=== PATIENT | female | born 2005 | race Caucasian/White ===

== ENCOUNTER 2024-11-23 18:11 | Inpatient (IN) | payer BC, SELFPAY ==
[2024-11-23] VITALS (9 sets, daily range): BP systolic 116–145; BP diastolic 78–99; BMI 20.4; BMI 19.5
--- NOTE | 2024-11-23 15:11 | ED.GENMED ---
History of Present Illness
General
Chief Complaint: Breathing Problem
Source: patient
Exam Limitations: none
Time Seen by Provider: 11/23/24 14:59
Nursing documentation reviewed up to this point in time: agreed with
History of Present Illness
History of Present Illness:
Patient with history of exercise-induced asthma, presents to ED secondary to worsening cough with shortness of breath over the past couple of days, despite using her inhaler at home. Over the past 3 months, patient has had intermittent episodes of
similar symptoms. Patient has been evaluated at urgent care center on multiple occasions, and has finished course of antibiotics as well as 2 rounds his own. Denies fever or chills. Denies chest pain. Denies leg pain or swelling. Denies recent
travel or surgery. Denies nausea, vomiting, or diarrhea. Denies loss of appetite. Denies family history of early heart disease or blood clots. Patient is currently at school, and reports having been exposed to 'dirty air', as they visited school
barn recently.
Review of Systems
Review of Systems
Allergies reviewed?: Yes
All Other Systems: ROS reviewed and negative except as documented in HPI and ROS
Constitutional: Reports no symptoms; Denies fever
Respiratory: Reports cough and trouble breathing
Cardiac: Reports no symptoms; Denies chest pain
ABD/GI: Reports no symptoms; Denies vomiting or diarrhea
Musculoskeletal: Reports no symptoms; Denies edema
Skin: Reports no symptoms
Neurological: Reports no symptoms
Phy Exam
Physical Exam
Physical Exam:
Physical Exam
General: mild respiratory distress, not acutely ill. afebrile. tachycardic
Head: nc/at. eomi
Neck: supple. no meningeal signs. normal posterior pharynx
Heart: tachycardic, no murmur.
Lungs: mild respiratory distress. clear bilaterally
Abdomen: normal bowel sounds. not tender.
Neuro: alert and oriented x 3. no focal neurological deficits
Skin: no rash
Psychiatric: well kept. interactive and cooperative
Extremities: no edema. no calf tenderness.
Sepsis
Sepsis Screening
Sepsis Assessment: Sepsis Ruled Out
Sepsis Screen
Sepsis Screen: Sepsis Ruled Out
Date: 11/23/24
Time: 22:50
Course
Orders/Labs/Results
Orders:
Orders
11/23/24 Dinner
Regular
At Your Request: Full Participation
11/23/24 15:08
Dexamethasone Sod Phosphate [Decadron] 6 mg IV NOW STA
Ipratropium/Albuterol Sulfate [Duoneb] 3 ml INH R NOW STA
Test Result ONCE
11/23/24 15:09
0.9% Sodium Chloride 500 ml [Nss] 500 ml IV BOLUS
11/23/24 15:26
Complete Blood Count/With Diff Urgent
Comprehensive Metabolic Panel Urgent
D-Dimer Urgent
HCG, Serum Qualitative Screen Urgent
Magnesium Urgent
11/23/24 17:03
Ipratropium/Albuterol Sulfate [Duoneb] 3 ml INH R NOW STA
11/23/24 17:39
Code Status As Directed
Resuscitation Status: Full Code
11/23/24 17:41
Activity As Directed
Activity Level: As Tolerated
Vital Signs As Directed
Frequency: Per unit guidelines
11/23/24 17:42
Pneumatic Compression Sleeves As Directed
Type: Knee high
DX Deep Vein Thrombosis Video Routine
11/23/24 17:43
Admit/Transfer Patient As Directed
Co-Sign Provider:
Level of Care: Inpatient admission
Assign to:: Telemetry
Physician / Group: blair
Diagnosis: asthma exacerbation
Reason for Telemetry: Arrhythmia
Date to Stop Telemetry: 11/26/24
Time to Stop Telemetry: 11:00
Reason for Hospitalization: asthma exacerbation
Expected length of stay greater than two midnights?: Yes
ELOS- Estimated Length of Stay in days: 2
I certify the patient meets the requirements for IP care: Yes
PRN Pain Medication Management As Directed
May give lesser potent ordered pain med per pt: Yes
preference::
Protocol:: Medication orders for pain may be administered in a
manner that supports deferring to patient preference
when the pt is:
- Requesting an ordered lesser potent pain medication.
Least to most potent pain medications are defined
as: acetaminophen < NSAID < tramadol < opioids
(morphine, oxycodone, hydromorphone).
- Requesting a lesser dose of the same medication IF
ORDERED.
- Requesting a less intrusive route of administration
if both routes are prescribed by the provider (PO <
IV).
11/23/24 17:45
CR Chest - 2 Views Urgent
Comment:
Reason For Exam: coughm wheeze
11/23/24 20:00
Albuterol Nebs [Ventolin Nebules] 2.5 mg INH R QID
Guaifenesin [Mucinex] 1,200 mg PO Q12
11/24/24 00:00
Dexamethasone Sod Phosphate [Decadron] 4 mg IV Q8
11/24/24 06:00
Basic Metabolic Panel IN AM
Complete Blood Count/With Diff IN AM
11/26/24 11:00
DC Protocol for Telemetry ONCE
Abnormal Lab Results
11/23/24
15:26
WBC 15.2 H 10^3/uL
(4.8-10.8)
Abs Immat Gran (auto) 0.1 H 10^3/uL
(0-0.05)
Absolute Neuts (auto) 10.9 H 10^3/uL
(1.4-6.5)
Absolute Monos (auto) 1.1 H 10^3/uL
(0.1-0.6)
Lymphocytes % 15.3 L %
(20.5-51.1)
Carbon Dioxide 21 L mmol/L
(22-30)
Glucose 110 H mg/dl
(70-99)
11/23/24 15:26
11/23/24 15:26
Vital Signs
Initial and Last Documented VS:
Initial Vital Signs
Temp Pulse Resp BP Pulse Ox
98.5 F 132 34 132/88 92
11/23/24 14:44 11/23/24 14:44 11/23/24 14:44 11/23/24 14:44 11/23/24 14:44
Last Documented Vital Signs
Temp Pulse Resp BP Pulse Ox
98.6 F 112 16 141/88 98
11/23/24 19:42 11/23/24 21:18 11/23/24 21:18 11/23/24 19:42 11/23/24 21:18
MDM/Problems Addressed
MDM/Problems Addressed:
Patient despite subjective improvement, with persistent wheezing along with mild respiratory distress, as noted by tachypnea and tachycardia. D-dimer negative. No other risk factors for PE. Patient will be admitted for further events or
treatment, including continuous IV steroid as well as nebulizer treatment. May benefit from pulmonary consultation.
*Critical Care Note
Total Time (30-74mins, 75-104mins- exclusive of procedures): Not Applicable
ED Attending Note
-
Portions of this chart may have been created with voice recognition software.� Occasional wrong word or��sound alike� substitutions may have occurred due to the inherent limitations of voice recognition software.
Discharge Plan
Departure
Patient Disposition: Admit
Date of Disposition: 11/23/24
Time of Disposition: 17:07
Admit to: Telemetry
Presentation/result/management discussed w/ accepting MD/DO: Hospitalist
Discharge Problem:
Asthma exacerbation
Interventions
Interventions:
*Risk Screen - Suicide Last Done: 11/23/24 14:44
*General Assessment Last Done: 11/23/24 14:44
*Neglect/Abuse Screening Last Done: 11/23/24 14:58
*ED- Fall Risk Assessment Last Done: 11/23/24 14:58
*ED COVID-19 Vaccine History Last Done: 11/23/24 14:44
*Nursing Disposition Last Done: 11/23/24 19:21
ED- Cardiac Assessment Last Done: 11/23/24 14:58
ED- Pulmonary Assessment Last Done: 11/23/24 14:58
Discharge Date and Time
Discharge Date/Time: 11/23/24 19:22
[2024-11-23] MEDS: DUONEB 3 ML INH ×2 (15:16→17:40)
[2024-11-23] MEDS: NSS 500 IV (15:24)
[2024-11-23] MEDS: DECADRON 6 MG IV (15:24)
[2024-11-23 15:36] LABS: % Basophils 0.6 % (0-2); % Eosinophils 4.2 % (0-6); % Immature Granulocytes 0.5 % (0-0.5); % Lymphocytes 15.3 % (20.5-51.1); % Monocytes 7.5 % (1.7-9.3); % Neutrophils 71.9 % (42.2-75.2); Absolute Basophils 0.1 10^3/uL (0-0.2); Absolute Eosinophils 0.6 10^3/uL (0-0.7); Absolute Immature Granulocytes 0.1 10^3/uL (0-0.05); Absolute Lymphocytes 2.3 10^3/uL (1.2-3.4); Absolute Monocytes 1.1 10^3/uL (0.1-0.6); Absolute Neutrophils 10.9 10^3/uL (1.4-6.5); Hematocrit 44.1 % (37.0-47.0); Hemoglobin 15.2 g/dL (12.0-16.0); Mean Corp Hgb Conc. 34.5 g/dL (33.0-37.0); Mean Corpuscular Hgb 28.7 pg (27.0-31.0); Mean Corpuscular Volume 83.4 fL (81.0-99.0); Mean Platelet Volume 10.1 fL (7.4-10.4); Nucleated Red Blood Cells % 0 %; Platelet Count 353 10^3/uL (130-400); Red Blood Cell Count 5.29 10^6/uL (4.20-5.40); Red Cell Dist. Width 12.5 % (11.5-14.5); White Blood Cell Count 15.2 10^3/uL (4.8-10.8)
[2024-11-23 15:45] LABS: HCG, Serum Qualitative Screen Negative
[2024-11-23 15:51] LABS: ALT (SGPT) 29 U/L (0-35); AST (SGOT) 22 U/L (14-36); Albumin 4.8 g/dl (3.5-5.0); Alkaline Phosphatase 75 U/L (38-126); Blood Urea Nitrogen 14 mg/dl (7-17); Calcium 9.8 mg/dl (8.4-10.2); Carbon Dioxide 21 mmol/L (22-30); Chloride 102 mmol/L (98-107); Estimated Creatinine Clearance 119 ml/min; Glucose 110 mg/dl (70-99); Magnesium 1.9 mg/dl (1.6-2.3); Potassium 3.9 mmol/L (3.5-5.1); Sodium 137 mmol/L (135-145); Total Bilirubin 0.6 mg/dl (0.2-1.3); Total Protein 7.9 g/dl (6.3-8.2); eGFR > 60.00
[2024-11-23 16:17] LABS: D-Dimer 0.29 ug/mlFEU (0.00-0.50)
--- NOTE | 2024-11-23 17:49 | HPS.HSE ---
Family Physician
-
Family Physician: Ana M Terrell
Chief Complaint
-
shortness of breath
History of Present Illness
19-year-old female past medical history of exercise-induced asthma, depression, ADHD presenting with worsening cough and shortness of breath over the past couple days despite using inhaler at home. Over the past 6 weeks she has had multiple
episodes of asthma exacerbation with shortness of breath, chest tightness and productive cough. She was treated with 2 courses of prednisone as well as antibiotics. Symptoms improved with prednisone but come back soon after finishing the course.
Her last chest x-ray was 2 weeks ago at urgent care. Denies fevers or chills. Denies leg pain or swelling. Denies recent travel or surgery. Denies nausea vomiting or diarrhea.
She has been using albuterol inhaler every 2 hours without improvement.
Denies family history of blood clot. Her father has asthma.
Patient does horse riding and has been exposed to [place] her whole life. She does not feel that the symptoms are worse when she is in that environment.
No smoking or alcohol use or drugs.
Medical History
Past Medical History
Past Medical History: Reports Other (exercise-induced asthma, depression, ADHD)
Past Surgical History: Reports Other (wisdom teeth )
Social History
Tobacco: Non-smoker
Alcohol: None
Drug: None
Family History
Family History: Not pertinent
Allergies / Home Medications
Allergies reflects when Allergies were last updated in [facility].
Home Medications with original date entered in [facility]
Allergy/Medication List:
Allergies
Allergy/AdvReac Type Severity Reaction Status Date / Time
No Known Allergies Allergy Verified 11/23/24 15:12
Review of Systems
-
History Source: Patient
A 12 point ROS was completed and negative except as noted: Yes
Constitutional: Reports No Symptoms
EENT: Reports No Symptoms
Respiratory: Reports See HPI
Cardiac: Reports No Symptoms
Abdomen/GI: Reports No Symptoms
: Reports No Symptoms
Musculoskeletal: Reports No Symptoms
Skin: Reports No Symptoms
Neurological: Reports No Symptoms
Endocrine: Reports No Symptoms
Hematologic/Lymphatic: Reports No Symptoms
Psych: Reports No Symptoms
Physical Exam
Vital Signs
Vital Signs
Temp Pulse Resp BP Pulse Ox
98.5 F 107 23 123/83 95
11/23/24 14:44 11/23/24 16:30 11/23/24 16:30 11/23/24 16:00 11/23/24 16:30
Physical Exam
General: Well Developed, Well Nourished and No Apparent Distress
HEENT: NormoCephalic, Moist mucous membranes and Atraumatic
Respiratory: Wheezes
Cardiac: S1/S2 and Regular Rhythm; No Murmur or Rub
GI: Soft, Non Tender, Non Distended and Normal Bowel Sounds; No Organomegaly
Rectal: Deferred by Provider
Musculoskeletal: No Clubbing, No Cyanosis and No Edema
Skin: No Rash
Neuro: Nonfocal/grossly intact
Laboratory Results
-
11/23/24 15:26
11/23/24 15:26
Laboratory Results
Total Bilirubin 0.6 mg/dl (0.2-1.3) 11/23/24 15:26
AST 22 U/L (14-36) 11/23/24 15:26
ALT 29 U/L (0-35) 11/23/24 15:26
Alkaline Phosphatase 75 U/L (38-126) 11/23/24 15:26
Data Reviewed
-
Lab Data: Labs Reviewed by me
Old Records: Reviewed
Impression/Plan
-
IMPRESSION:
PLAN:
# Recurrent asthma exacerbations possibly triggered by regular hay exposure
-Check chest x-ray
-D-dimer negative
-DuoNebs every 6 hours
-Dexamethasone 4 mg every 8 hours
-Guaifenesin
-Likely needs to be on Breo
-Pulmonary consult
ADHD/depression
-Continue Concerta, bupropion, Zoloft
Full code
DVT prophylaxis�SCDs
Regular diet
[2024-11-23] MEDS: MUCINEX 1200 MG PO (20:11)
--- NOTE | 2024-11-23 20:44 | PTCARENOTE ---
Addendum entered by Alessandra Wills RN 11/23/24 22:23:
Patients HR in 120- 140s with activity. MARCELA Rodriguez made aware. See MAR for new orders
Original Note:
Rec'd patient from ER, stable vitals. AAOx3. denies any complaints. ST/ SR on tele #5. POC reviewed with patient.
[2024-11-23] MEDS: VENTOLIN NEBULES 2.5 MG INH (21:09)
[2024-11-23] MEDS: DECADRON 4 MG IV (23:01)
[2024-11-24] VITALS (7 sets, daily range): BP systolic 120–136; BP diastolic 71–87; BMI 19.5
[2024-11-24] MEDS: XOPENEX 1.25 MG INHALANT SOLUTION INH ×2 (01:33→08:29)
[2024-11-24 08:18] LABS: % Basophils 0.2 % (0-2); % Eosinophils 0.2 % (0-6); % Immature Granulocytes 0.9 % (0-0.5); % Lymphocytes 10.4 % (20.5-51.1); % Monocytes 6.2 % (1.7-9.3); % Neutrophils 82.1 % (42.2-75.2); Absolute Immature Granulocytes 0.1 10^3/uL (0-0.05); Absolute Lymphocytes 1.5 10^3/uL (1.2-3.4); Absolute Monocytes 0.9 10^3/uL (0.1-0.6); Absolute Neutrophils 11.6 10^3/uL (1.4-6.5); Hematocrit 42.9 % (37.0-47.0); Hemoglobin 14.5 g/dL (12.0-16.0); Mean Corp Hgb Conc. 33.8 g/dL (33.0-37.0); Mean Corpuscular Hgb 28.7 pg (27.0-31.0); Mean Platelet Volume 10.1 fL (7.4-10.4); Nucleated Red Blood Cells % 0 %; Platelet Count 347 10^3/uL (130-400); Red Blood Cell Count 5.05 10^6/uL (4.20-5.40); Red Cell Dist. Width 12.6 % (11.5-14.5); White Blood Cell Count 14.1 10^3/uL (4.8-10.8)
[2024-11-24] MEDS: DECADRON 4 MG IV ×2 (08:22→19:35)
[2024-11-24] MEDS: MUCINEX 1200 MG PO ×2 (08:23→19:36)
[2024-11-24 08:45] LABS: Blood Urea Nitrogen 12 mg/dl (7-17); Carbon Dioxide 23 mmol/L (22-30); Chloride 102 mmol/L (98-107); Estimated Creatinine Clearance 114 ml/min; Glucose 132 mg/dl (70-99); Potassium 4.5 mmol/L (3.5-5.1); Sodium 137 mmol/L (135-145); eGFR > 60.00
--- NOTE | 2024-11-24 09:45 | CON.PUL ---
Consultation
Consultation Request
Date/Time Consultation Requested: 11/24/2024-8 AM
Date/Time Consultation Performed: 11/24/2024-8:30 AM
Requesting Provider: Hospitalist
Performing Provider: Dr. Quinteros
Reason for Consultation: Asthma exacerbation
Medical History
-
Chief Complaint: Asthma exacerbation
History of Present Illness:
19-year-old female with a history of exercise-induced asthma, depression, ADHD who had an upper respiratory tract infection 6 weeks ago and subsequently had multiple rounds of antibiotics and steroids for persistent cough and wheeze who presented
from equestrian competition with increasing shortness of breath found to have asthma exacerbation-pulmonary consulted for shortness of breath/asthma exacerbation 11/24/2024. She feels much improved with steroids and nebulizers. She states that she
had an upper respiratory tract infection 6 weeks ago and prior to that she never had real respiratory issues and rarely used her rescue inhaler. She was at an kooaba[place] competition and had increasing shortness of breath and came to the emergency
room. She is feeling improved with less shortness of breath and currently no chest pain, chest tightness, productive cough, chest congestion, hemoptysis, abdominal pain, nausea, weakness, leg swelling or focal abnormalities.
Past Medical History
Past Medical History: None (Lsuhks-vkahujal-pgmsofa. Depression. ADHD. [place] teeth removal.)
Social History
Tobacco: Non-smoker
Alcohol: None
Drug: None
Personal: Single
Living: Other (College student at [employer])
Occupational Exposures: No known asbestos exposure
Environmental Exposures: No known tuberculosis exposure
Family History
Family History: Reviewed & Not Pertinent
Allergies / Home Medications
Allergies
Allergy/AdvReac Type Severity Reaction Status Date / Time
No Known Allergies Allergy Verified 11/23/24 15:12
Home Medications
�Medication �Instructions �Recorded �Confirmed �Last Taken �Type
Bupropion 150 mg PO DAILY 11/23/24 11/23/24 11/23/24 History
methylphenidate 54 mg PO DAILY 11/23/24 11/23/24 11/23/24 History
sertraline 100 mg tablet (Zoloft) 100 mg PO DAILY 11/23/24 11/23/24 11/23/24 History
Review of Systems
-
Unable to Obtain full review of systems at this time due to: Other (Per HPI)
Vitals / Labs / Diagnostic Testing
Vital Signs
Temp Pulse Resp BP Pulse Ox
98.0 F 108 16 122/74 97
11/24/24 08:15 11/24/24 08:33 11/24/24 08:33 11/24/24 08:15 11/24/24 08:33
Lab Data
11/24/24 08:00
11/24/24 08:00
Diagnostic Testing:
Assessment
-
19-year-old female with a history of exercise-induced asthma, depression, ADHD who had an upper respiratory tract infection 6 weeks ago and subsequently had multiple rounds of antibiotics and steroids for persistent cough and wheeze who presented
from equestrian competition with increasing shortness of breath found to have asthma exacerbation-pulmonary consulted for shortness of breath/asthma exacerbation 11/24/2024.
Asthma exacerbation
Mild leukocytosis
Mild hyperglycemia
Conditions present prior to admission:
Plan
Admit patient to the hospital with acute asthma exacerbation
Continue to closely monitor for progression of severe exacerbation--appears to be improving and not declining
Respiratory rate >30
Tachycardia >120
accessary muscle use
Inability to speak full sentences
Inability be supine
Pulsus paradox, etc.
Monitor PEF if necessary
Obtain ABG if necessary to assess for hypercapnia
Supplemental oxygen as needed
Inhaled beta agonist-on Xopenex
Mucinex
Systemic steroids-on Decadron 4 mg IV every 8 hours convert to prednisone with slow taper
Magnesium sulfate 2 g IV over 20 minutes
Extreme cases consider IV ketamine
Consider Heliox 70/30 or 80/20-in extreme cases
Eventually outpatient pulmonary follow-up and consideration towards obtaining allergy testing, IgE level, eosinophils, etc.
DVT prophylaxis
Nutrition
Early mobilization
Dr. Quinteros reviewed with nursing, respiratory therapy and mother at the bedside
Likely stable for discharge-would discharge on albuterol, Breo 200-1 puff daily, prednisone taper and short course of azithromycin
Follow-up with pulmonary-from [facility]-will obtain local arboreal scientist
Diagnostic data:
Chest x-ray 11/23/2024-bronchiolitis right midlung field
Data Reviewed
-
EKG: Report reviewed by me
Radiology: Image personally visualized and interpreted and Report reviewed by me
Medical Tests (Nuc Med, Echo etc): Report reviewed by me
Labs: Labs reviewed by me
Old Records: Reviewed
Total Time Spent with Patient (in minutes): 55
--- NOTE | 2024-11-24 10:58 | W.PN.HOSP.TC ---
Today's Communication/Plan
-
decrease decadron
start symbicort
Assessment / Plan
Assessment / Plan
pt is a 19 year old female
Recurrent asthma exacerbations possibly triggered by regular hay exposure--? vs post viral RAD--decrease IV decadron to 4mg IV Q12H (4mg Q8H = 80mg of prednisone--too high to send home on)--start symbicort--apprec pulm--likely d/c in AM
ADHD/depression--Continue Concerta, bupropion, Zoloft
code status--Full code
DVT proph-�SCDs
Anticipated Discharge: Within 24 hours
Subjective/Interval History
-
Date of Service: November 24, 2024
pt feeling better
Objective Data
-
Labs:
Laboratory Results
11/24/24
08:00
WBC 14.1 H
Hgb 14.5
Hct 42.9
Plt Count 347
Sodium 137
Potassium 4.5
Chloride 102
Carbon Dioxide 23
BUN 12
Creatinine 0.7
Glucose 132 H
Calcium 10.0
Vital Signs:
max temp for 24 hours
11/23/24
19:42
Temp 98.6 F
Vital Signs
Temp Pulse Resp BP Pulse Ox
98.0 F 108 16 122/74 97
11/24/24 08:15 11/24/24 08:33 11/24/24 08:33 11/24/24 08:15 11/24/24 08:33
I&O
11/23/24 11/24/24 11/25/24
06:59 06:59 06:59
Intake Total 900 / 900
Balance 900 / 900
Review of Systems
-
All other systems: Reviewed and negative
Physical Exam
-
General: Well Developed, Well Nourished and No Apparent Distress
HEENT: Normocephalic and Atraumatic
Respiratory: Wheezes (faint)
Cardiac: Regular Rhythm and S1/S2
GI: Soft, Nontender, Nondistended and Normal Bowel Sounds
Musculoskeletal: No Clubbing, No Cyanosis and No Edema
Neuro: Awake and Alert
Psych: Calm
[2024-11-24] MEDS: SYMBICORT 160/4.5 MCG INHALER 2 PUFF INH ×2 (13:38→19:34)
--- NOTE | 2024-11-24 15:59 | CM ---
Patient seen at bedside this am with physician, and patient mother. Patient lives with parents and attends college. Patient here following asthma attack at horse show. Patient mother also present. Plan is for patient to go home with parents when
medically appropriate. PCP is Dr. Schneider and her pharmacy is [facility]. Patient has no DME at home. CM will continue to follow for discharge planning needs.
Plan; home with no needs.
--- NOTE | 2024-11-24 17:20 | PTCARENOTE ---
Pt received from [facility] Acute care via stretcher. Transport was w/o incident. Pt is AAOx3, HRR: 98 apical, resp. are easy at 16, lungs are clear to auscultation, both anteriorly and posteriorly. Pulse ox 94%RA. VSS, Pt is afebrile. Pt denies pain at this
time. Pt oriented to new hosp. environment. Pt instructed on plan of care. Pt verbalized understanding of instructions. Call k[facility] is within reach.
[2024-11-25] MEDS: SYMBICORT 160/4.5 MCG INHALER 2 PUFF INH (07:42)
[2024-11-25 07:55] VITALS: BP 126/73
--- NOTE | 2024-11-25 08:32 | W.PN.HOSP.TC ---
Today's Communication/Plan
-
d/c
Assessment / Plan
Assessment / Plan
pt is a 19 year old female
Recurrent asthma exacerbations possibly triggered by regular hay exposure--? vs post viral RAD--decrease IV decadron to 4mg IV Q12H (4mg Q8H = 80mg of prednisone--too high to send home on)--cont symbicort, prednisone taper--apprec pulm--d/c--f/u
with pulm outpt
ADHD/depression--Continue Concerta, bupropion, Zoloft
code status--Full code
DVT proph-�SCDs
Anticipated Discharge: Today
Subjective/Interval History
-
Date of Service: November 25, 2024
doing well
Objective Data
-
Vital Signs:
max temp for 24 hours
11/24/24
16:00
Temp 98.7 F
Vital Signs
Temp Pulse Resp BP Pulse Ox
98.9 F 83 16 126/73 98
11/25/24 07:55 11/25/24 07:55 11/25/24 07:55 11/25/24 07:55 11/25/24 07:55
I&O
11/24/24 11/25/24 11/26/24
06:59 06:59 06:59
Intake Total 900 / 900 480 / 480
Balance 900 / 900 480 / 480
Review of Systems
-
All other systems: Reviewed and negative
Physical Exam
-
General: Well Developed, Well Nourished and No Apparent Distress
HEENT: Normocephalic and Atraumatic
Respiratory: Clear to Auscultation; Negative Wheezes
Cardiac: Regular Rhythm and S1/S2; Negative Murmur
GI: Soft, Nontender, Nondistended and Normal Bowel Sounds
Musculoskeletal: No Clubbing, No Cyanosis and No Edema
Neuro: Awake and Alert
--- NOTE | 2024-11-25 08:36 | W.DCSUMMARY ---
Discharge Summary
Discharge Data
Date of Admission: 11/23/24
Date of Discharge: 11/25/24
-
Pending Results: No
Hospital Course
Primary care physician : Ana M Terrell
Principal Discharge diagnosis : Recurrent asthma exacerbations
Chronic Discharge diagnosis : Attention deficit hyperactivity disorder/depression
Hospital Course : Patient is a 19-year-old female with a history of exercise-induced asthma who has been coughing with shortness of breath over the past few days prior to admission. Patient had multiple asthma exacerbations over the past 6 weeks
and was treated with 2 courses of of burst dosing prednisone. She has been using her rescue inhaler to no avail. Symptoms came back when she was at a horse show this past weekend. She has been exposed to [place] her whole life. Of note, patient
had a viral upper respiratory infection in the not too distant past and since then frequency of asthma exacerbations have increased. Patient was admitted.
Problem #1: Recurrent asthma exacerbations. Patient was admitted and started on IV steroids which included Decadron 4 mg IV every 8 hours. She was also given nebulizer treatments. Patient improved but the dose of Decadron was too high to
discharge her home safely on. That was weaned to 4 mg IV every 12 and Symbicort inhaler was started. Patient will be sent home with a Symbicort inhaler. She will also be sent home with a longer prednisone taper. She should follow-up with
outpatient pulmonology. If Symbicort is too expensive, perhaps her primary or new human resources team member can find one that is more affordable for her.
Problem #2: All other medical issues. These include Attention deficit hyperactivity disorder/depression. These medical issues were stable during her hospitalization. Medications were continued as able.
Patient is stable for discharge home at this time. If there are any questions regarding this dictation or her hospital stay, please not hesitate to call. Our office number is [phone].
Important imaging findings :
CHEST X-RAY IMPRESSION:
Suspect mild infectious/inflammatory bronchiolitis in the right midlung.
Discharge Plan
-
Patient Disposition: Home (Routine Discharge)
Discharge Diagnosis/Procedures: Recurrent asthma exacerbations, attention deficit hyperactivity disorder/depression
Condition: Good
Diet: Regular
Activity: As tolerated
Driving Restrictions: As prior to admission
Bathing Restrictions: None
Activity Restrictions/Additional Instructions:
You will need pulmonary follow-up as an outpatient.
Referrals:
Ana M Terrell MD [Family Provider] - in less than 1 week
Prescriptions:
New
budesonide-formoterol [Symbicort] 160-4.5 mcg/actuation Hfa Aerosol Inhaler
2 puff inhalation R BID Qty: 10.2 0RF
prednisone 10 mg Tablet
See Rx Instructions .ROUTE .COMPLEX Qty: 45 0RF
Rx Instructions:
Take By Mouth:
50 mg daily x3 days, 40 mg daily x3 days,
30 mg daily x3 days, 20 mg daily x3 days,
10 mg daily x3 days
Continued
methylphenidate
54 mg PO DAILY
sertraline [Zoloft] 100 mg Tablet
100 mg PO DAILY
Bupropion
150 mg PO DAILY
Discharge Orders:
Discharge Patient (As Directed); Ordered 11/25/24
Ordered By: Mile Snider
Discharge Date and Time
Print Language: NIGERIEN
[2024-11-25] MEDS: MUCINEX 1200 MG PO (09:02)
[2024-11-25] MEDS: DECADRON 4 MG IV (09:03)
--- NOTE | 2024-11-25 10:03 | W.PN.PUL.V3 ---
Today's Communication / Plan
-
Stable for proposed discharge.
Prednisone taper along with maintenance inhalers and rescue inhalers.
Outpatient pulmonary follow-up
Assessment
-
19-year-old female with a history of exercise-induced asthma, depression, ADHD who had an upper respiratory tract infection 6 weeks ago and subsequently had multiple rounds of antibiotics and steroids for persistent cough and wheeze who presented
from [facility] with increasing shortness of breath found to have asthma exacerbation-pulmonary consulted for shortness of breath/asthma exacerbation 11/24/2024.
Asthma exacerbation
Mild leukocytosis
Mild hyperglycemia
Conditions present prior to admission:
Asthma
Depression
ADHD
[place] teeth removal
Plan
Respiratory status stable.
Now on room air.
No signs of asthma exacerbation worsening-currently significantly improved
Continue nebulizers.
Change Decadron to prednisone taper.
Eventually outpatient pulmonary follow-up and consideration towards obtaining allergy testing, IgE level, eosinophils, etc.
Dr. Quinteros reviewed with nursing, respiratory therapy and mother at the bedside on 11/24/24.
Reviewed with Dr. Snider 11/25/24
Stable for discharge-would discharge on albuterol, Breo 200-1 puff daily, prednisone taper and short course of azithromycin
Follow-up with pulmonary-from [facility]-will obtain local center receptionist
Diagnostic data:
Chest x-ray 11/23/2024-bronchiolitis right midlung field
Subjective Data
-
Date of Service:
Date of Service: November 25, 2024
Chief Complaint: Pulmonary Follow Up and Dyspnea Follow Up
Subjective:
Feels improved, no respiratory distress
Review of Systems
General: Other ( per HPI)
Objective Data
Data Reviewed
Vital Signs / I&O:
Vital Signs
Temp Pulse Resp BP Pulse Ox
98.9 F 83 16 126/73 98
11/25/24 07:55 11/25/24 07:55 11/25/24 07:55 11/25/24 07:55 11/25/24 09:01
Intake and Output
11/24/24 11/25/24 11/26/24
06:59 06:59 06:59
Intake Total 900 / 900 480 / 480
Balance 900 / 900 480 / 480
SaO2: 98
Physical Exam
General: Respiratory Distress (n) and Comfortable
HEENT: Normocephalic and Moist Mucous Membranes
Cardiovascular: Regular Rhythm
Respiratory: Wheeze (n), Non-Labored Respirations and Accessory Resp Muscle Use (n)
GI: Soft and Non Distended
Neurology: No Motor Deficits
Skin: Good Color and Cyanosis (n)
Labs/Micro/Reports
Lab Data
11/24/24 08:00
11/24/24 08:00
== END 2024-11-25 12:39 | disposition home or self-care (01) | DRG 203 ==
LOC: 2 SOUTH 18:11
PROVIDERS: ADMITTING PHYSICIAN Hospitalist; ATTENDING PHYSICIAN Internal Medicine; EMERGENCY PHYSICIAN Emergency Medicine; FAMILY PHYSICIAN Internal Medicine; OTHER PHYSICIAN Internal Medicine Critical Care Medicine
DX: J45.901 Unspecified asthma with (acute) exacerbation (principal); F32.A Depression, unspecified; F90.9 Attention-deficit hyperactivity disorder, unspecified type; Z82.5 Family history of asthma and other chronic lower respiratory diseases
CPT/HCPCS: 71046; 80048; 80053; 83735; 84703; 85025; 85379; 94640; 96374; 99285